=== PATIENT | male | born 1960 | race Caucasian/White ===

== ENCOUNTER 2020-03-17 16:19 | Emergency (ER) | payer MEDICAID ==
[2020-03-17] MEDS ORDERED: 50% Dextrose in Water 50 ML Syringe IVPUSH ONE (16:30)
--- NOTE | 2020-03-17 17:07 | EDM.PDOC ---
ED HPI GENERAL MEDICAL PROBLEM - General Chief Complaint: General Stated Complaint: HYPOGLYCEMIA Time Seen by Provider: 03/17/20 16:25 Source of Information: Reports: EMS History Limitations: Reports: No Limitations - History of Present Illness INITIAL COMMENTS - FREE TEXT/NARRATIVE: 59 years old male known pt of diabetes & cardiomyopathy passed out at work today at 3 o'clock noticed by a coworker .He was brought to ER by EMS .The patient took his lunch at 1 o'clock and took 6 units of insulin. He was lethargic & blood sugar was 35mg/dl at arrival to ER He was given cane nino juice & also injected IV push of 50ml of 50 percent dextrose -10 minutes blood sugar raised to 140mg/dl The patient denies fever, N/V ,headache chest pain ,cough ,shortness of breath ,abdominal pain ,dysuria Onset: Today, Sudden Onset Date: 03/17/20 Onset Time: 15:00 Duration: Hour(s): (3) Associated Symptoms: Reports: Confusion, Syncope - Related Data Allergies Allergy/AdvReac Type Severity Reaction Status Date / Time No Known Allergies Allergy Verified 03/17/20 16:22 Home Meds: Home Meds Insulin Glargine,Hum.Rec.Anlog [Lantus Solostar] 25 unit SQ DAILY 03/17/20 [History] Insulin Lispro [HumaLOG] 6 - 10 unit SQ TID 03/17/20 [History] RX: Amitriptyline [Elavil] 50 mg PO BEDTIME 03/17/20 [History] RX: carvediloL [Carvedilol] 3.125 mg PO BID 03/17/20 [History] SUMAtriptan [Imitrex] 25 mg PO Q4H PRN 03/17/20 [History] metFORMIN [Glucophage XR] 500 mg PO DAILY 03/17/20 [History] Past Medical History Cardiovascular History: Reports: Cardiomyopathy Endocrine/Metabolic History: Reports: Diabetes, Type II Social & Family History - Tobacco Use Tobacco Use Within Last Twelve Months: Cigarettes Years of Tobacco use: 20 Packs/Tins Daily: 1 ED ROS GENERAL - Review of Systems Review Of Systems: See Below Constitutional: Reports: Weakness, Other (passed out ) HEENT: Reports: No Symptoms Respiratory: Reports: No Symptoms Cardiovascular: Reports: No Symptoms Endocrine: Reports: Low Glucose GI/Abdominal: Reports: No Symptoms Musculoskeletal: Reports: No Symptoms Neurological: Reports: Syncope Psychiatric: Reports: No Symptoms Hematologic/Lymphatic: Reports: No Symptoms ED EXAM, GENERAL - Physical Exam Exam: See Below Exam Limited By: Altered Mental Status General Appearance: Alert, Mild Distress Head: Atraumatic, Normocephalic Neck: Normal Inspection Respiratory/Chest: No Respiratory Distress, Lungs Clear Cardiovascular: Normal Peripheral Pulses, No Edema, No Gallop, No JVD, No Murmur, No Rub GI/Abdominal: Normal Bowel Sounds, Soft, Non-Tender, No Organomegaly, No Distention, Rebound Back Exam: Normal Inspection Extremities: Normal Inspection, Normal Range of Motion, Non-Tender Neurological: Alert, Oriented Course - Vital Signs Text/Narrative:: Vitals monitored labs ordered Blood sugar was 35 mg/dl at 16.20 IV line passed & 50 ml push 50 ml of 50 percent dextrose blood sugar repeated & it was 140mg /dl at 16.40 pm & 146 mg /dl at 17.00 EKG done & shows left axis deviations pt is given complex carbohydrate diet orthostatic vitals checked lying WM=542/72 sitting =106 /71 standing =109/73 blood sugar is repeated - Last Recorded V/S: Last Vital Signs Temp 98.3 F 03/17/20 16:19 Pulse 67 03/17/20 16:19 Resp 16 03/17/20 16:19 BP 118/74 03/17/20 16:19 Pulse Ox 98 03/17/20 16:19 - Orders/Labs/Meds Orders: Active Orders 24 hr Category Date Time Status EKG Documentation Completion [RC] STAT Care 03/17/20 16:45 Active Chest 1V Frontal [CR] Stat Exams 03/17/20 16:44 Ordered COMPREHENSIVE METABOLIC PN,CMP [CHEM] Stat Lab 03/17/20 16:35 Received TROPONIN I [CHEM] Stat Lab 03/17/20 16:35 Received UA W/KOTA RFLX IF INDICATED [URIN] Stat Lab 03/17/20 16:38 Ordered Labs: Laboratory Tests 03/17/20 Range/Units 16:35 WBC 9.4 (4.0-11.0) K/uL RBC 5.10 (4.50-6.50) M/uL Hgb 15.3 (13.0-18.0) g/dL Hct 44.1 (40.0-54.0) % MCV 87 (76-96) fL MCH 30.0 (27.0-32.0) pg MCHC 34.7 (31.0-35.0) g/dL RDW 14.2 (11.0-16.0) % Plt Count 155 (150-400) K/uL MPV 11.0 H (6.0-10.0) fL Neut % (Auto) 71.5 H (45.0-70.0) % Lymph % (Auto) 22.1 (20.0-40.0) % Barnes % (Auto) 4.8 (3.0-10.0) % Eos % (Auto) 1.5 (1.0-5.0) % Baso % (Auto) 0.1 (0.0-0.5) % Neut # (Auto) 6.75 (2.00-7.50) K/uL Lymph # (Auto) 2.08 (1.50-4.00) K/uL Barnes # (Auto) 0.45 (0.20-0.80) K/uL Eos # (Auto) 0.14 (0.04-0.40) K/uL Baso # (Auto) 0.01 L (0.02-0.10) K/uL Meds: Medications Discontinued Medications Generic Name Dose Route Start Last Admin Trade Name Freq PRN Reason Stop Dose Admin Dextrose/Water 50 ml 03/17/20 16:30 Dextrose 50% In Water IVPUSH 03/17/20 16:31 ONETIME ONE Departure - Departure Time of Disposition: 18:25 Disposition: Home, Self-Care 01 Clinical Impression: Hypoglycemia associated with type 2 diabetes mellitus, Syncope and collapse - Discharge Information Sepsis Event Note (ED) - Focused Exam Vital Signs: Vital Signs Temp Pulse Resp BP Pulse Ox 03/17/20 16:19 98.3 F 67 16 118/74 98 - Problem List & Annotations (1) Hypoglycemia associated with type 2 diabetes mellitus SNOMED Code(s): 958998406, 266291259 Code(s): E11.649 - TYPE 2 DIABETES MELLITUS WITH HYPOGLYCEMIA WITHOUT COMA Status: Acute Priority: Medium Onset Date: ~03/17/20 Annotation/Comment:: f/u with primary care to adjust insulin (2) Syncope and collapse SNOMED Code(s): 349453114 Code(s): R55 - SYNCOPE AND COLLAPSE Status: Acute Priority: Medium Onset Date: ~03/17/20 Annotation/Comment:: always keep some candy with you . If you feeling dizzy ,just hold something & sat down - My Orders Last 24 Hours: My Active Orders 03/17/20 16:35 COMPREHENSIVE METABOLIC PN,CMP [CHEM] Stat TROPONIN I [CHEM] Stat 03/17/20 16:38 UA W/KOTA RFLX IF INDICATED [URIN] Stat 03/17/20 16:44 Chest 1V Frontal [CR] Stat 03/17/20 16:45 EKG Documentation Completion [RC] STAT - Assessment/Plan Last 24 Hours: My Active Orders 03/17/20 16:35 COMPREHENSIVE METABOLIC PN,CMP [CHEM] Stat TROPONIN I [CHEM] Stat 03/17/20 16:38 UA W/KOTA RFLX IF INDICATED [URIN] Stat 03/17/20 16:44 Chest 1V Frontal [CR] Stat 03/17/20 16:45 EKG Documentation Completion [RC] STAT
--- NOTE | 2020-03-18 10:21 | CR ---
Date of Service: 03/17/20 Clinical Data: Passed Out AP CHEST: No priors. The heart size is normal. There is calcification of the aortic arch. There is subtle ground-glass opacity in the right perihilar region. Viral pneumonia should be considered. The lungs are otherwise clear. No pneumothorax. No pleural effusions. There is degenerative disk disease at multiple levels in the thoracic spine. [id number] [facility]
== END 2020-03-17 18:40 | disposition home or self-care (01) ==
LOC: LB.ED 16:19
DX: E11.649 Type 2 diabetes mellitus with hypoglycemia without coma (principal); Z79.4 Long term (current) use of insulin; Z79.899 Other long term (current) drug therapy; Z72.0 Tobacco use
CPT/HCPCS: 36415; 71045; 80053; 81003; 82947; 82962; 84484; 85025; 93005; 96374; 99284; 99285-25

== ENCOUNTER 2020-04-22 19:30 | Emergency (ER) | payer MEDICAID ==
[2020-04-22] MEDS: Lidocaine 1% with EPINEPHrine 1:100,000 20 ML MDV INJECT ONE (19:42)
[2020-04-22] MEDS: Diphtheria,Pertussis(Acell),Tetanus Vaccine 0.5 ML SDV IM ONE (20:03)
--- NOTE | 2020-04-22 20:11 | EDM.PDOC ---
ED HPI GENERAL MEDICAL PROBLEM - General Chief Complaint: General Stated Complaint: LACERATION Time Seen by Provider: 04/22/20 19:40 Source of Information: Reports: Patient, RN History Limitations: Reports: No Limitations - History of Present Illness INITIAL COMMENTS - FREE TEXT/NARRATIVE: Mr. Wilkinson is a 59YO Diabetic male who went hypoglycemic and fainted he hit his head as he fell forward. No LOC. He is alert and Oriented x3. BG improved once he ate in the Ed. He has a linear laceration 1,5 cm above his left eye. No bleeding upon inspection. No JOLLY, Fever, N, V or D. Lungs are CTA. Normal HRR. He takes BP meds. He did not treat the injury prior to coming in. Onset: Today Onset Date: 04/22/20 Onset Time: 18:00 Duration: Hour(s): Location: Reports: Head, Face Improves with: Reports: None Worsens with: Reports: None Associated Symptoms: Reports: No Other Symptoms, Weakness - Related Data Allergies Allergy/AdvReac Type Severity Reaction Status Date / Time No Known Allergies Allergy Verified 04/22/20 20:14 Home Meds: Home Meds Amitriptyline [Elavil] 50 mg PO BEDTIME 03/17/20 [History] Insulin Glargine,Hum.Rec.Anlog [Lantus Solostar] 25 unit SQ DAILY 03/17/20 [History] Insulin Lispro [HumaLOG] 6 - 10 unit SQ TID 03/17/20 [History] SUMAtriptan [Imitrex] 25 mg PO Q4H PRN 03/17/20 [History] carvediloL [Carvedilol] 3.125 mg PO BID 03/17/20 [History] metFORMIN [Glucophage XR] 500 mg PO DAILY 03/17/20 [History] Past Medical History Cardiovascular History: Reports: Cardiomyopathy Other Cardiovascular History: Pt states "Ejection Fraction low" Neurological History: Reports: Migraines Endocrine/Metabolic History: Reports: Diabetes, Type II Social & Family History - Family History Family Medical History: No Pertinent Family History - Caffeine Use Caffeine Use: Reports: None ED ROS GENERAL - Review of Systems Review Of Systems: Comprehensive ROS is negative, except as noted in HPI. Skin: Reports: Other (aceration above left eye brow 1.5cm clean linear wound. ) ED EXAM, GENERAL - Physical Exam Exam: See Below Exam Limited By: No Limitations General Appearance: Alert, No Apparent Distress Eye Exam: Bilateral Eye: PERRL Nose: Normal Inspection, Normal Mucosa, No Blood Throat/Mouth: Normal Inspection, Normal Lips, Normal Teeth Head: Other (laceration 1.5cm above left eye.) Neck: Normal Inspection, Supple, Non-Tender, Full Range of Motion Respiratory/Chest: No Respiratory Distress, Lungs Clear, Normal Breath Sounds Cardiovascular: Normal Peripheral Pulses, Regular Rate, Rhythm, No Edema Peripheral Pulses: 2+: Radial (L), Radial (R) GI/Abdominal: Normal Bowel Sounds, Soft, Non-Tender (Male) Exam: No Hernia Back Exam: Normal Inspection, Full Range of Motion Extremities: Normal Inspection, Normal Range of Motion, Non-Tender Neurological: Alert, Oriented, CN II-XII Intact, Normal Cognition, Normal Gait, Normal Reflexes Psychiatric: Normal Affect, Normal Mood Skin Exam: Warm, Dry, Wound/Incision Lymphatic: No Adenopathy ED GENERAL MEDICAL PROCEDURES - Laceration/Wound Repair Left Face Lac/wound length in cm: 1.5 Appearance: Subcutaneous, Linear, Clean, Heavily Contaminated Anesthetic Type: Local Local Anesthesia - Lidocaine (Xylocaine): 1% with EPI Local Anesthetic Volume: 4cc Skin Prep: Chlorhexidine (Hibiciens), Providone-Iodine (Betadine), Other (saline) Exploration/Debridement/Repair: Wound Explored, In a Bloodless Field, No Foreign Material Found Closed with: Sutures Suture Size: 4-0 Suture Type: Nylon, Interrupted Course - Orders/Labs/Meds Labs: Laboratory Tests 04/22/20 Range/Units 18:23 POC Glucose 49 L* (74-110) mg/dL Departure - Departure Time of Disposition: 21:00 Disposition: Home, Self-Care 01 Condition: Good Clinical Impression: Hypoglycemia due to insulin, Laceration of face, Hypoglycemia associated with type 2 diabetes mellitus, Syncope and collapse - Discharge Information *PRESCRIPTION DRUG MONITORING PROGRAM REVIEWED*: Not Applicable Instructions: Hypoglycemia, Laceration Care, Adult, Facial Laceration, Preventing Hypoglycemia, Near-Syncope, [id number] Additional Instructions: Hold Lantus tonight. Increase fluids. Keep wound clean and dry. FU in 7 days to remove sutures. RT to ED or PCP for new and or worsening symptoms. - Assessment/Plan Assessment:: 1.5 cm Laceration above left eye. Hypoglycemia. Plan: Hold Lantus tonight. Increase fluids. Keep wound clean and dry. FU in 7 days to remove sutures. RT to ED or PCP for new and or worsening symptoms.
== END 2020-04-22 20:40 | disposition home or self-care (01) ==
LOC: LB.ED 19:30
DX: R55 Syncope and collapse (principal); S01.81XA Laceration without foreign body of other part of head, initial encounter; E11.649 Type 2 diabetes mellitus with hypoglycemia without coma; Z23 Encounter for immunization; Z79.4 Long term (current) use of insulin; Z79.899 Other long term (current) drug therapy; W18.30XA Fall on same level, unspecified, initial encounter; Y93.01 Activity, walking, marching and hiking; Y92.89 Other specified places as the place of occurrence of the external cause; Y99.0 Civilian activity done for income or pay
CPT/HCPCS: 12011; 82962; 90471; 90715; 99283; 99284-25

== ENCOUNTER 2020-10-31 23:04 | Emergency (ER) | payer MEDICAID ==
[2020-10-31] MEDS ORDERED: Ondansetron 4 MG Tab.DIS PO PRN (23:21)
[2020-10-31] MEDS ORDERED: Ondansetron 4 MG Tab.DIS ONE (23:33)
[2020-10-31] MEDS ORDERED: Sodium Chloride 0.9% 1,000 ML IV ONE (23:41)
[2020-10-31] MEDS ORDERED: 50% Dextrose in Water 50 ML Syringe IVPUSH ONE (23:42)
[2020-10-31] MEDS ORDERED: D5 1/2 NS w/ 10 mEq/L KCl 1,000 ML IV SCH (23:45)
[2020-11-01] MEDS ORDERED: HYDROmorphone 2 MG/ML SDV IVPUSH ONE (00:02)
[2020-11-01] MEDS ORDERED: HYDROmorphone 2 MG/ML SDV ONE (00:15)
[2020-11-01] MEDS ORDERED: 50% Dextrose in Water 50 ML Syringe ONE (00:31)
[2020-11-01] MEDS ORDERED: Insulin Glargine,Human Rec. Analog 100 Units/ML 3 ML Pen SUBCUT ONE (01:02)
[2020-11-01] MEDS ORDERED: Glucagon,Human Recombinant 1 MG Vial IM PRN (01:02)
[2020-11-01] MEDS ORDERED: Ondansetron 4 MG/2 ML SDV IVPUSH PRN (01:02)
[2020-11-01] MEDS ORDERED: 50% Dextrose in Water 50 ML Syringe IVPUSH PRN (01:02)
[2020-11-01] MEDS ORDERED: Sodium Chloride 0.9% 1,000 ML IV SCH (01:15)
[2020-11-01] MEDS: Ketorolac 30 MG/ML SDV IVPUSH SCH ×2 (01:24→07:04)
[2020-11-01] MEDS ORDERED: Ketorolac 30 MG/ML SDV ONE (01:31)
[2020-11-01] MEDS ORDERED: Insulin Aspart 100 Units/ML 3 ML Pen SUBCUT ONE ×2 (05:41→05:53)
--- NOTE | 2020-11-01 08:11 | CT ---
Date of Service: 08/30/20 Clinical Data: Head injury with LOC. UNENHANCED BRAIN CT: No priors. No masses or mass effect. No intracranial hemorrhage. No evidence of acute or subacute infarct. There is soft tissue swelling adjacent to the right frontal bone and there is preseptal soft tissue swelling on the right. No underlying fractures. No other significant findings. IMPRESSION: No acute intracranial abnormalities. [id number] [facility]
--- NOTE | 2020-11-01 08:44 | EDM.PDOC ---
ED HPI GENERAL MEDICAL PROBLEM - General Chief Complaint: Diabetic Complaint Stated Complaint: FALL AT HOME Time Seen by Provider: 10/31/20 23:15 - History of Present Illness INITIAL COMMENTS - FREE TEXT/NARRATIVE: Pt comes in with family after passing out at home. He is diabetic and took his Humalog before his evening meal. He just started eating pizza when he passed out and hit a coffee table with his head. He lives alone and was unconscious for several hours before waking up and calling his Mom who lived close by. She brought him in right away for evaluation. He C/O a headache and feeling tired. Initial eval reveals a huge hematoma around his right eye, closing his rt eye completely. He denies any chest pain, SOB or wheezing, or Abd pain. He is nauseated at times and did vomit once at home. Right Headache Pain Score (Numeric/FACES): 4 - Related Data Allergies Allergy/AdvReac Type Severity Reaction Status Date / Time No Known Allergies Allergy Verified 10/31/20 23:19 Home Meds: Home Meds Amitriptyline [Elavil] 50 mg PO BEDTIME 03/17/20 [History] Insulin Glargine,Hum.Rec.Anlog [Lantus Solostar] 25 unit SQ DAILY 03/17/20 [History] Insulin Lispro [HumaLOG] 6 - 10 unit SQ TID 03/17/20 [History] SUMAtriptan [Imitrex] 25 mg PO Q4H PRN 03/17/20 [History] carvediloL [Carvedilol] 3.125 mg PO BID 03/17/20 [History] Past Medical History Cardiovascular History: Reports: Cardiomyopathy Other Cardiovascular History: Pt states "Ejection Fraction low" Neurological History: Reports: Migraines Endocrine/Metabolic History: Reports: Diabetes, Type II Social & Family History - Family History Family Medical History: No Pertinent Family History - Caffeine Use Caffeine Use: Reports: Coffee ED ROS GENERAL - Review of Systems Review Of Systems: Comprehensive ROS is negative, except as noted in HPI. Constitutional: Reports: Fatigue HEENT: Reports: Other (swelling around his rt eye.) GI/Abdominal: Reports: Nausea ED EXAM GENERAL NO PERIP PULSE - Physical Exam Exam: See Below General Appearance: Other (Pt has a large hematoma around the Rt eye, closing the eye completely. Abrasions are also present on the lateral side and going up to the forehead.) Eye Exam: Left Eye: EOMI, PERRL Throat/Mouth: Other (mucous membranes are dry.) #1 Interpretation EKG Date: 10/31/20 Course - Vital Signs Last Recorded V/S: Last Vital Signs Temp 96 F L 10/31/20 23:44 Pulse 100 11/01/20 05:37 Resp 18 11/01/20 05:37 BP 137/81 11/01/20 05:37 Pulse Ox 96 11/01/20 05:37 - Orders/Labs/Meds Orders: Active Orders 24 hr Category Date Time Status Blood Glucose Check, Bedside [RC] Q2HR Care 11/01/20 01:05 Active Dextrose 50% in Water Med 11/01/20 01:02 Active 50 ml IVPUSH ASDIRECTED PRN Glucagon,Human Recombinant [GlucaGen] Med 11/01/20 01:02 Active 1 mg IM ASDIRECTED PRN Ketorolac [Toradol] Med 11/01/20 01:15 Active 15 mg IVPUSH Q6H Ondansetron [Zofran ODT] Med 10/31/20 23:21 Active 4 mg PO ONETIME PRN Ondansetron [Zofran] Med 11/01/20 01:02 Active 4 mg IVPUSH Q4H PRN Sodium Chloride 0.9% [Normal Saline] 1,000 ml Med 11/01/20 01:15 Active IV ASDIRECTED Medication Orders Dextrose/Water (50% Dextrose In Water 50 Ml Syringe) 50 ml IVPUSH ASDIRECTED PRN PRN Reason: Hypoglycemia Glucagon (Glucagon,Human Recombinant 1 Mg Vial) 1 mg IM ASDIRECTED PRN PRN Reason: Hypoglycemia Sodium Chloride (Normal Saline) 1,000 mls @ 125 mls/hr IV ASDIRECTED MARIA D Last Admin: 11/01/20 01:17 Dose: 125 mls/hr Documented by: JENNIFER Ketorolac Tromethamine (Ketorolac 30 Mg/Ml Sdv) 15 mg IVPUSH Q6H [facility] Last Admin: 11/01/20 07:04 Dose: 15 mg Documented by: Admin: 11/01/20 01:24 Dose: 15 mg Documented by: JENNIFER Ondansetron HCl (Ondansetron 4 Mg Tab.Dis) 4 mg PO ONETIME PRN PRN Reason: Vomiting Last Admin: 10/31/20 23:23 Dose: 4 mg Documented by: JENNIFER Ondansetron HCl (Ondansetron 4 Mg/2 Ml Sdv) 4 mg IVPUSH Q4H PRN PRN Reason: Nausea/Vomiting Labs: Laboratory Tests 10/31/20 10/31/20 10/31/20 Range/Units 00:15 00:15 23:12 WBC (4.0-11.0) K/uL RBC (4.50-6.50) M/uL Hgb (13.0-18.0) g/dL Hct (40.0-54.0) % MCV (76-96) fL MCH (27.0-32.0) pg MCHC (31.0-35.0) g/dL RDW (11.0-16.0) % Plt Count (150-400) K/uL MPV (6.0-10.0) fL Neut % (Auto) (45.0-70.0) % Lymph % (Auto) (20.0-40.0) % [place] % (Auto) (3.0-10.0) % Eos % (Auto) (1.0-5.0) % Baso % (Auto) (0.0-0.5) % Neut # (Auto) (2.00-7.50) K/uL Lymph # (Auto) (1.50-4.00) K/uL [place] # (Auto) (0.20-0.80) K/uL Eos # (Auto) (0.04-0.40) K/uL Baso # (Auto) (0.02-0.10) K/uL Sodium 137 (136-145) mmol/L Potassium 5.8 H D (3.5-5.1) mmol/L Chloride 106 (98-107) mmol/L Carbon Dioxide 28.0 (21.0-32.0) mmol/L Anion Gap 8.8 (5.0-15.0) mmol/L BUN 20 (8-26) mg/dL Creatinine 0.91 (0.70-1.30) mg/dL Est Cr Clr Drug Dosing TNP Estimated GFR (MDRD) > 60 (>60) MLS/MIN BUN/Creatinine Ratio 22.0 (6-25) Glucose 211 H (74-100) mg/dL POC Glucose 58 L (74-110) mg/dL Calcium 9.1 (8.5-10.1) mg/dL Total Bilirubin 1.0 D (0.0-1.0) mg/dL AST 25 (15-37) U/L ALT 35 (12-78) U/L Alkaline Phosphatase 90 (46-116) U/L Troponin I < 0.017 (0.000-0.060) ng/mL Total Protein 7.0 (6.4-8.2) g/dL Albumin 4.0 (3.4-5.0) g/dL Globulin 3.0 (2.2-4.2) g/dL Albumin/Globulin Ratio 1.3 (0.8-2.0) 11/01/20 11/01/20 11/01/20 Range/Units 00:15 01:30 03:10 WBC 10.9 (4.0-11.0) K/uL RBC 4.90 (4.50-6.50) M/uL Hgb 14.2 (13.0-18.0) g/dL Hct 41.0 (40.0-54.0) % MCV 84 (76-96) fL MCH 29.0 (27.0-32.0) pg MCHC 34.6 (31.0-35.0) g/dL RDW 14.1 (11.0-16.0) % Plt Count 161 (150-400) K/uL MPV 10.4 H (6.0-10.0) fL Neut % (Auto) 89.0 H (45.0-70.0) % Lymph % (Auto) 6.6 L (20.0-40.0) % [place] % (Auto) 4.2 (3.0-10.0) % Eos % (Auto) 0.1 L (1.0-5.0) % Baso % (Auto) 0.1 (0.0-0.5) % Neut # (Auto) 9.65 H (2.00-7.50) K/uL Lymph # (Auto) 0.72 L (1.50-4.00) K/uL [place] # (Auto) 0.46 (0.20-0.80) K/uL Eos # (Auto) 0.01 L (0.04-0.40) K/uL Baso # (Auto) 0.01 L (0.02-0.10) K/uL Sodium (136-145) mmol/L Potassium (3.5-5.1) mmol/L Chloride (98-107) mmol/L Carbon Dioxide (21.0-32.0) mmol/L Anion Gap (5.0-15.0) mmol/L BUN (8-26) mg/dL Creatinine (0.70-1.30) mg/dL Est Cr Clr Drug Dosing Estimated GFR (MDRD) (>60) MLS/MIN BUN/Creatinine Ratio (6-25) Glucose (74-100) mg/dL POC Glucose 162 H 188 H (74-110) mg/dL Calcium (8.5-10.1) mg/dL Total Bilirubin (0.0-1.0) mg/dL AST (15-37) U/L ALT (12-78) U/L Alkaline Phosphatase (46-116) U/L Troponin I (0.000-0.060) ng/mL Total Protein (6.4-8.2) g/dL Albumin (3.4-5.0) g/dL Globulin (2.2-4.2) g/dL Albumin/Globulin Ratio (0.8-2.0) 11/01/20 11/01/20 11/01/20 Range/Units 05:21 05:24 07:07 WBC (4.0-11.0) K/uL RBC (4.50-6.50) M/uL Hgb (13.0-18.0) g/dL Hct (40.0-54.0) % MCV (76-96) fL MCH (27.0-32.0) pg MCHC (31.0-35.0) g/dL RDW (11.0-16.0) % Plt Count (150-400) K/uL MPV (6.0-10.0) fL Neut % (Auto) (45.0-70.0) % Lymph % (Auto) (20.0-40.0) % [place] % (Auto) (3.0-10.0) % Eos % (Auto) (1.0-5.0) % Baso % (Auto) (0.0-0.5) % Neut # (Auto) (2.00-7.50) K/uL Lymph # (Auto) (1.50-4.00) K/uL [place] # (Auto) (0.20-0.80) K/uL Eos # (Auto) (0.04-0.40) K/uL Baso # (Auto) (0.02-0.10) K/uL Sodium (136-145) mmol/L Potassium (3.5-5.1) mmol/L Chloride (98-107) mmol/L Carbon Dioxide (21.0-32.0) mmol/L Anion Gap (5.0-15.0) mmol/L BUN (8-26) mg/dL Creatinine (0.70-1.30) mg/dL Est Cr Clr Drug Dosing Estimated GFR (MDRD) (>60) MLS/MIN BUN/Creatinine Ratio (6-25) Glucose (74-100) mg/dL POC Glucose 275 H 253 H 211 H (74-110) mg/dL Calcium (8.5-10.1) mg/dL Total Bilirubin (0.0-1.0) mg/dL AST (15-37) U/L ALT (12-78) U/L Alkaline Phosphatase (46-116) U/L Troponin I (0.000-0.060) ng/mL Total Protein (6.4-8.2) g/dL Albumin (3.4-5.0) g/dL Globulin (2.2-4.2) g/dL Albumin/Globulin Ratio (0.8-2.0) 11/01/20 11/01/20 Range/Units 08:00 08:14 WBC (4.0-11.0) K/uL RBC (4.50-6.50) M/uL Hgb (13.0-18.0) g/dL Hct (40.0-54.0) % MCV (76-96) fL MCH (27.0-32.0) pg MCHC (31.0-35.0) g/dL RDW (11.0-16.0) % Plt Count (150-400) K/uL MPV (6.0-10.0) fL Neut % (Auto) (45.0-70.0) % Lymph % (Auto) (20.0-40.0) % [place] % (Auto) (3.0-10.0) % Eos % (Auto) (1.0-5.0) % Baso % (Auto) (0.0-0.5) % Neut # (Auto) (2.00-7.50) K/uL Lymph # (Auto) (1.50-4.00) K/uL [place] # (Auto) (0.20-0.80) K/uL Eos # (Auto) (0.04-0.40) K/uL Baso # (Auto) (0.02-0.10) K/uL Sodium 138 (136-145) mmol/L Potassium 4.1 D (3.5-5.1) mmol/L Chloride 107 (98-107) mmol/L Carbon Dioxide 26.1 (21.0-32.0) mmol/L Anion Gap 9.0 (5.0-15.0) mmol/L BUN 22 (8-26) mg/dL Creatinine 0.95 (0.70-1.30) mg/dL Est Cr Clr Drug Dosing TNP Estimated GFR (MDRD) > 60 (>60) MLS/MIN BUN/Creatinine Ratio 23.2 (6-25) Glucose 197 H (74-100) mg/dL POC Glucose 183 H (74-110) mg/dL Calcium 8.5 (8.5-10.1) mg/dL Total Bilirubin (0.0-1.0) mg/dL AST (15-37) U/L ALT (12-78) U/L Alkaline Phosphatase (46-116) U/L Troponin I (0.000-0.060) ng/mL Total Protein (6.4-8.2) g/dL Albumin (3.4-5.0) g/dL Globulin (2.2-4.2) g/dL Albumin/Globulin Ratio (0.8-2.0) Meds: Medications Generic Name Dose Route Start Last Admin Trade Name Freq PRN Reason Stop Dose Admin Dextrose/Water 50 ml 11/01/20 01:02 50% Dextrose In Water 50 Ml Syringe IVPUSH ASDIRECTED PRN Hypoglycemia Glucagon 1 mg 11/01/20 01:02 Glucagon,Human Recombinant 1 Mg Vial IM ASDIRECTED PRN Hypoglycemia Sodium Chloride 1,000 mls @ 125 mls/hr 11/01/20 01:15 11/01/20 01:17 Normal Saline IV 125 mls/hr ASDIRECTED MARIA D Administration Ketorolac Tromethamine 15 mg 11/01/20 01:15 11/01/20 07:04 Ketorolac 30 Mg/Ml Sdv IVPUSH 15 mg Q6H MARIA D Administration Ondansetron HCl 4 mg 10/31/20 23:21 10/31/20 23:23 Ondansetron 4 Mg Tab.Dis PO 4 mg ONETIME PRN Administration Vomiting Ondansetron HCl 4 mg 11/01/20 01:02 Ondansetron 4 Mg/2 Ml Sdv IVPUSH Q4H PRN Nausea/Vomiting Discontinued Medications Generic Name Dose Route Start Last Admin Trade Name Freq PRN Reason Stop Dose Admin Dextrose/Water 25 ml 10/31/20 23:42 10/31/20 23:50 50% Dextrose In Water 50 Ml Syringe IVPUSH 10/31/20 23:43 25 ml ONETIME ONE Administration Dextrose/Water Confirm 11/01/20 00:31 11/01/20 00:41 50% Dextrose In Water 50 Ml Syringe Administered 11/01/20 00:32 Not Given Dose 50 ml .ROUTE .STK-MED ONE Hydromorphone HCl 1 mg 11/01/20 00:02 11/01/20 00:06 Hydromorphone 2 Mg/Ml Sdv IVPUSH 11/01/20 00:03 1 mg ONETIME ONE Administration Hydromorphone HCl Confirm 11/01/20 00:15 11/01/20 00:22 Hydromorphone 2 Mg/Ml Sdv Administered 11/01/20 00:16 Not Given Dose 2 mg .ROUTE .STK-MED ONE Potassium Chloride/Dextrose/Sod Cl 1,000 mls @ 500 mls/hr 10/31/20 23:45 D5 1/2 Ns W/ 10 Meq/L Kcl IV ASDIRECTED MARIA D Sodium Chloride 1,000 mls @ 999 mls/hr 10/31/20 23:41 10/31/20 23:54 Normal Saline IV 11/01/20 00:41 999 mls/hr .BOLUS ONE Administration Insulin Aspart 4 unit 11/01/20 05:41 11/01/20 05:46 Insulin Aspart 100 Units/Ml 3 Ml Pen SUBCUT 11/01/20 05:42 4 units ONETIME ONE Administration Insulin Aspart 2 unit 11/01/20 05:53 11/01/20 05:54 Insulin Aspart 100 Units/Ml 3 Ml Pen SUBCUT 11/01/20 05:54 2 units ONETIME ONE Administration Insulin Glargine 20 units 11/01/20 01:02 11/01/20 01:26 Insulin Glargine,Human Rec. Analog 100 Units/Ml 3 Ml Pen SUBCUT 11/01/20 01:03 20 units ONETIME ONE Administration Ketorolac Tromethamine Confirm 11/01/20 01:31 11/01/20 01:35 Ketorolac 30 Mg/Ml Sdv Administered 11/01/20 01:32 Not Given Dose 30 mg .ROUTE .STK-MED ONE Ondansetron HCl Confirm 10/31/20 23:33 10/31/20 23:39 Ondansetron 4 Mg Tab.Dis Administered 10/31/20 23:34 Not Given Dose 4 mg .ROUTE .STK-MED ONE - Radiology Interpretation Free Text/Narrative:: Head CT reveals a large hematoma of the Rt periorbital, supraorbital, and frontal scalp area. No other acute findings noted. - Re-Assessments/Exams Free Text/Narrative Re-Assessment/Exam: 11/01/20 08:49 B.S was 58 initially. 1/2 amp of D50 was given. Normal saline was started with a bolus of 1 liter. Zofran was given for nausea. Dilaudid given for headache pain rated at 8-9/10. His B.S. improved to 188. Labs also revealed a K+ level of 5.8 - I believe this is due to dehydration. Pt is feeling better, but very tired. We decided to monitor him overnite as an ER hold. Toradol and Zofran were given IV. Checking B.S. q 2 hours. Lantus 20 mg was given. Pt did well and by morning his B.S. was 197. He was able to stand and walk without feeling unstable. He will be discharged home with a special client bus driver. His Rt eye is still swollen shut, but the swelling is much less than last nite. He is instructed to monitor his Rt eye vision closely when the swelling resolves. If his vision is blurry or changed in any way he is to see Optometry for further eval. Pt is feeling much better today and is ready to go home. 11/01/20 08:52 Departure - Departure Time of Disposition: 09:00 Disposition: Home, Self-Care 01 Condition: Good Clinical Impression: Hypoglycemia, Closed head injury with loss of consciousness of unknown duration - Discharge Information *PRESCRIPTION DRUG MONITORING PROGRAM REVIEWED*: Yes *COPY OF PRESCRIPTION DRUG MONITORING REPORT IN PATIENT IWONA: Yes Referrals: PCP,None [Primary Care Provider] - Sepsis Event Note (ED) - Evaluation Sepsis Screening Result: No Definite Risk - Focused Exam Vital Signs: Vital Signs Temp Pulse Resp BP Pulse Ox 11/01/20 05:37 100 18 137/81 96 11/01/20 01:02 79 18 130/84 98 11/01/20 00:35 83 18 119/72 97 11/01/20 00:27 78 18 120/75 96 11/01/20 00:11 82 18 99 10/31/20 23:44 96 F L 94 18 125/89 97 10/31/20 23:20 96 F L 96 18 125/89 97 - My Orders Last 24 Hours: My Active Orders 10/31/20 23:21 Ondansetron [Zofran ODT] 4 mg PO ONETIME PRN 11/01/20 01:02 Dextrose 50% in Water 50 ml IVPUSH ASDIRECTED PRN Glucagon,Human Recombinant [GlucaGen] 1 mg IM ASDIRECTED PRN Ondansetron [Zofran] 4 mg IVPUSH Q4H PRN 11/01/20 01:05 Blood Glucose Check, Bedside [RC] Q2HR 11/01/20 01:15 Ketorolac [Toradol] 15 mg IVPUSH Q6H Sodium Chloride 0.9% [Normal Saline] 1,000 ml IV ASDIRECTED - Assessment/Plan Last 24 Hours: My Active Orders 10/31/20 23:21 Ondansetron [Zofran ODT] 4 mg PO ONETIME PRN 11/01/20 01:02 Dextrose 50% in Water 50 ml IVPUSH ASDIRECTED PRN Glucagon,Human Recombinant [GlucaGen] 1 mg IM ASDIRECTED PRN Ondansetron [Zofran] 4 mg IVPUSH Q4H PRN 11/01/20 01:05 Blood Glucose Check, Bedside [RC] Q2HR 11/01/20 01:15 Ketorolac [Toradol] 15 mg IVPUSH Q6H Sodium Chloride 0.9% [Normal Saline] 1,000 ml IV ASDIRECTED
== END 2020-11-01 09:02 | disposition home or self-care (01) ==
LOC: LB.ED 23:04
DX: S06.9X9A Unspecified intracranial injury with loss of consciousness of unspecified duration, initial encounter (principal); E11.649 Type 2 diabetes mellitus with hypoglycemia without coma; Z79.4 Long term (current) use of insulin; W22.09XA Striking against other stationary object, initial encounter; Y92.009 Unspecified place in unspecified non-institutional (private) residence as the place of occurrence of the external cause
CPT/HCPCS: 36415; 70450; 80048; 80053; 82947; 84484; 85025; 93005; 96374; 96375; 99285; A9270; J1170; J1885; J7030

== ENCOUNTER 2020-11-09 23:46 | Emergency (ER) | payer MEDICAID ==
[2020-11-09] MEDS ORDERED: prednisoLONE Acetate 1% Ophth Susp 5 ML Bottle ONE (23:50)
[2020-11-10] MEDS: Tetracaine HCl/PF 0.5% 4 ML Bottle EYERT SCH (00:15)
--- NOTE | 2020-11-10 00:27 | EDM.PDOC ---
ED HPI GENERAL MEDICAL PROBLEM - General Chief Complaint: Eye Problems Stated Complaint: EYE PAIN Time Seen by Provider: 11/10/20 00:05 - History of Present Illness INITIAL COMMENTS - FREE TEXT/NARRATIVE: Pt comes to the ER with his Mom with C/O right eye pain, redness, and drainage. He fell about 1 week ago hitting his head and came in with a large hematoma around his Rt eye. CT scan did not show a fracture, just a massive hematoma. He tells me his eye has become more painful when open the last couple days. With his eye closed the pain is better. He was directed to follow up with an Talent Acquisition Relationship Manager, but tells me they were not available until next week. He does have an appt Thursday here in [place]. His vision is somewhat blurred. eye Pain Score (Numeric/FACES): 12 - Related Data Allergies Allergy/AdvReac Type Severity Reaction Status Date / Time No Known Allergies Allergy Verified 11/10/20 00:08 Home Meds: Home Meds Amitriptyline [Elavil] 50 mg PO BEDTIME 03/17/20 [History] Insulin Glargine,Hum.Rec.Anlog [Lantus Solostar] 25 unit SQ DAILY 03/17/20 [History] Insulin Lispro [HumaLOG] 6 - 10 unit SQ TID 03/17/20 [History] SUMAtriptan [Imitrex] 25 mg PO Q4H PRN 03/17/20 [History] carvediloL [Carvedilol] 3.125 mg PO BID 03/17/20 [History] Past Medical History Cardiovascular History: Reports: Cardiomyopathy Other Cardiovascular History: Pt states "Ejection Fraction low" Neurological History: Reports: Migraines Endocrine/Metabolic History: Reports: Diabetes, Type II Social & Family History - Family History Family Medical History: No Pertinent Family History - Caffeine Use Caffeine Use: Reports: Coffee ED ROS GENERAL - Review of Systems Review Of Systems: Comprehensive ROS is negative, except as noted in HPI. HEENT: Reports: Other (Rt eye pain, redness, and drainage.) ED EXAM GENERAL W FULL EYE - Physical Exam Exam: See Below Eye Exam: Right Eye: Conjunctival Injection, Other (The sclera is extensively reddened and injected. There is matter along the lid margins and both medial and lateral canthus.) Course - Vital Signs Last Recorded V/S: Last Vital Signs Temp 97.4 F 11/10/20 00:13 Pulse 87 11/10/20 00:13 Resp 16 11/10/20 00:13 BP 101/81 11/10/20 00:13 Pulse Ox 98 11/10/20 00:13 - Re-Assessments/Exams Free Text/Narrative Re-Assessment/Exam: 11/10/20 00:29 [place] drops were put in, and this helped with his pain. I will start him on Prednisolone drops and Gentak ointment. He is to use warm paks as needed. I advised him he should have seen an Talent Acquisition Relationship Manager sooner, but to keep his appt on Thursday. Follow up here sooner if his symptoms get worse over the weekend. Departure - Departure Time of Disposition: 00:20 Disposition: Home, Self-Care 01 Condition: Good Clinical Impression: Conjunctivitis Qualifiers: Conjunctivitis type: acute Acute conjunctivitis type: bacterial Laterality: right Qualified Code(s): H10.31 - Unspecified acute conjunctivitis, right eye - Discharge Information *PRESCRIPTION DRUG MONITORING PROGRAM REVIEWED*: No *COPY OF PRESCRIPTION DRUG MONITORING REPORT IN PATIENT IWONA: Yes Instructions: Bacterial Conjunctivitis, Adult Forms: ED Department Discharge Additional Instructions: Apply Gentak ointment to eye 4x/day for 1 week, apply a thin layer to inner eye and let absorb. Apply Prednisolone drops 4x/day for 3 days. Follow up with Opthamologist. Keep eye shut when possible and maintain clean area and clean hands while caring for the injury. Sepsis Event Note (ED) - Focused Exam Vital Signs: Vital Signs Temp Pulse Resp BP Pulse Ox 11/10/20 00:13 97.4 F 87 16 101/81 98
== END 2020-11-10 00:30 | disposition home or self-care (01) ==
LOC: LB.ED 23:46
DX: H10.021 Other mucopurulent conjunctivitis, right eye (principal); E11.9 Type 2 diabetes mellitus without complications; Z79.4 Long term (current) use of insulin
CPT/HCPCS: 99282; A9270-GY

== ENCOUNTER 2024-08-26 13:15 | Emergency (ER) | payer MEDICAID ==
[2024-08-26] MEDS ORDERED: Sodium Chloride 0.9% 10 ML Syringe FLUSH PRN (13:35)
[2024-08-26 13:51] LABS: BASOPHILS ABSOLUTE AUTO 0.01 K/uL (0.02-0.10); BASOPHILS PERCENT AUTO 0.1 % (0.0-0.5); EOSINOPHILS ABSOLUTE AUTO 0.01 K/uL (0.04-0.40); EOSINOPHILS PERCENT AUTO 0.1 % (1.0-5.0); LYMPHOCYTES ABSOLUTE AUTO 1.51 K/uL (1.50-4.00); LYMPHOCYTES PERCENT AUTO 21.1 % (20.0-40.0); MEAN PLATELET VOLUME 10.3 fL (6.0-10.0); MONOCYTES ABSOLUTE AUTO 0.61 K/uL (0.20-0.80); MONOCYTES PERCENT AUTO 8.5 % (3.0-10.0); NEUTROPHILS ABSOLUTE AUTO 5.00 K/uL (2.00-7.50); NEUTROPHILS PERCENT AUTO 70.2 % (45.0-70.0); PLATELET COUNT,PLT 281 K/uL (150-400); RED BLOOD CELL COUNT 4.51 M/uL (4.50-6.50); RED CELL DISTRIBUTION WIDTH 14.1 % (11.0-16.0); WHITE BLOOD CELL COUNT,WBC 7.1 K/uL (4.0-11.0)
[2024-08-26] MEDS: Ketorolac 15 MG/ML SDV IVPUSH ONE (14:00)
[2024-08-26 14:20] LABS: A/G RATIO 0.9 (0.8-2.0); ALANINE AMINOTRANSFERASE,ALT 35.0 U/L (12-78); ASPARTATE AMNIOTRANSFERASE,AST 35.0 U/L (15-37); BILIRUBIN TOTAL 0.7 mg/dL (0.0-1.0); BLOOD UREA NITROGEN,BUN 13.0 mg/dL (8-26); CARBON DIOXIDE,CO2 29.9 mmol/L (21.0-32.0); CHLORIDE,CL 102.0 mmol/L (98-107); CREATININE 0.87 mg/dL (0.70-1.30); EST CRCL DRUG DOSING (CG) 98.22 mL/min; ESTIMATED GFR 97.0 mL/min (>60); GLUCOSE RANDOM 146.0 mg/dL (74-100); POTASSIUM,K 3.8 mmol/L (3.5-5.1); PROTEIN TOTAL,TP 6.4 g/dL (6.4-8.2); SODIUM,NA 139.0 mmol/L (136-145)
[2024-08-26 15:06] LABS: INFLUENZA A NAA NEGATIVE (NEGATIVE); INFLUENZA B NAA NEGATIVE (NEGATIVE); RESPIRATORY SYNCYTIAL VIR NAA NEGATIVE (NEGATIVE)
[2024-08-26] MEDS: Albuterol 0.083% 2.5 MG/3 ML Neb Soln NEB ONE (15:25)
[2024-08-26 15:39] LABS: CORONAVIRUS COVID-19 NAA NEGATIVE (NEGATIVE)
[2024-08-26 16:54] LABS: APPEARANCE,URINE CLEAR (CLEAR); GLUCOSE,URINE NEGATIVE (NEGATIVE); OCCULT BLOOD,URINE NEGATIVE (NEGATIVE)
[2024-08-26 17:02] LABS: AMPHETAMINES SCREEN, URINE NEGATIVE (NEGATIVE); METHADONE SCREEN, URINE NEGATIVE (NEGATIVE); METHAMPHETAMINES SCREEN, URINE NEGATIVE (NEGATIVE); OXYCODONE SCREEN,URINE NEGATIVE (NEGATIVE); THC SCREEN,URINE 50 NG/ML POSITIVE (NEGATIVE)
== END 2024-08-26 20:25 | disposition home or self-care (01) ==
LOC: LB.ED 13:15
DX: E86.0 Dehydration (principal); R50.9 Fever, unspecified; E11.9 Type 2 diabetes mellitus without complications; Z79.4 Long term (current) use of insulin; Z79.899 Other long term (current) drug therapy
CPT/HCPCS: 36415; 71046; 71250; 80053; 80307; 81003; 83605; 83880; 84484; 85025; 86140; 87040; 87468; 87469; 87484; 87637; 87798; 93005; 94640; 96361; 96374; 99285; J1885; J7030; J7613; A0425; A0429; A9270-GY

== ENCOUNTER 2024-08-29 19:59 | Emergency (ER) | payer MEDICAID ==
[2024-08-29] MEDS ORDERED: Sodium Chloride 0.9% 10 ML Syringe FLUSH PRN (20:04)
[2024-08-29 20:17] LABS: MEAN PLATELET VOLUME 10.7 fL (6.0-10.0); PLATELET COUNT,PLT 271.0 K/uL (150-400); RED BLOOD CELL COUNT 4.74 M/uL (4.50-6.50); RED CELL DISTRIBUTION WIDTH 14.4 % (11.0-16.0); WHITE BLOOD CELL COUNT,WBC 7.2 K/uL (4.0-11.0)
[2024-08-29 20:43] LABS: BLOOD UREA NITROGEN,BUN 15.0 mg/dL (8-26); CARBON DIOXIDE,CO2 29.0 mmol/L (21.0-32.0); CHLORIDE,CL 107.0 mmol/L (98-107); CREATININE 0.81 mg/dL (0.70-1.30); EST CRCL DRUG DOSING (CG) 105.49 mL/min; ESTIMATED GFR 99.0 mL/min (>60); GLUCOSE RANDOM 177.0 mg/dL (74-100); POTASSIUM,K 4.0 mmol/L (3.5-5.1); SODIUM,NA 146.0 mmol/L (136-145); TROPONIN I HIGH SENSITIVITY 8.5 pg/ml (<=60.4)
[2024-08-30 07:16] LABS: APPEARANCE,URINE TURBID (CLEAR); GLUCOSE,URINE 100 mg/dL (NEGATIVE); OCCULT BLOOD,URINE NEGATIVE (NEGATIVE)
== END 2024-08-30 11:20 | disposition home or self-care (01) ==
LOC: LB.ED 19:59
DX: E11.649 Type 2 diabetes mellitus with hypoglycemia without coma (principal); Z79.4 Long term (current) use of insulin; Z79.899 Other long term (current) drug therapy
CPT/HCPCS: 36415; 70450; 80048; 81001; 82947; 83036; 83735; 84484; 85027; 93005; 93242; 96360; 99285; A0425; A0428; J7030; 93010; 99284

== ENCOUNTER 2024-08-31 14:55 | Emergency (ER) | payer MEDICAID ==
[2024-08-31 15:31] LABS: MEAN PLATELET VOLUME 11.1 fL (6.0-10.0); PLATELET COUNT,PLT 288.0 K/uL (150-400); RED BLOOD CELL COUNT 5.33 M/uL (4.50-6.50); RED CELL DISTRIBUTION WIDTH 14.6 % (11.0-16.0); WHITE BLOOD CELL COUNT,WBC 11.9 K/uL (4.0-11.0)
[2024-08-31 15:50] LABS: BLOOD UREA NITROGEN,BUN 14.0 mg/dL (8-26); CARBON DIOXIDE,CO2 31.8 mmol/L (21.0-32.0); CHLORIDE,CL 104.0 mmol/L (98-107); CREATININE 0.82 mg/dL (0.70-1.30); EST CRCL DRUG DOSING (CG) 104.21 mL/min; ESTIMATED GFR 99.0 mL/min (>60); GLUCOSE RANDOM 54.0 mg/dL (74-100); POTASSIUM,K 3.6 mmol/L (3.5-5.1); SODIUM,NA 144.0 mmol/L (136-145); TROPONIN I HIGH SENSITIVITY 26.7 pg/ml (<=60.4)
[2024-08-31 17:01] LABS: APPEARANCE,URINE CLEAR (CLEAR); GLUCOSE,URINE 250 mg/dL (NEGATIVE); OCCULT BLOOD,URINE TRACE-INTACT (NEGATIVE)
[2024-08-31] MEDS: Sodium Chloride 0.9% 50 ML SDV FLUSH SCH (17:20)
[2024-08-31] MEDS: Iopamidol 755 Mg/ML 100 ML Bottle IV PRN (17:20)
[2024-08-31 17:23] LABS: EPITHELIAL CELLS,URINE OCCASIONAL /HPF
[2024-08-31] MEDS: Potassium Phosphates 30 MMOLE in Sodium Chloride 0.9% 500 ML IV STA (18:09)
[2024-08-31] MEDS: diazePAM 5 MG/ML MDV IVPUSH ONE (18:29)
[2024-08-31] MEDS: diazePAM 5 MG/ML MDV IV ONE (20:54)
[2024-08-31] MEDS: diazePAM 5 MG/ML MDV ONE (20:57)
[2024-09-01] MEDS: diazePAM 5 MG/ML MDV IVPUSH ONE (01:15)
[2024-09-01] MEDS: Labetalol 100 MG/20 ML MDV IVPUSH ONE (02:11)
[2024-09-05 07:00] LABS: BORRELIA SPECIES SOURCE Plasma; BORRELIA SPP DNA DETECTION PCR Not Detected
== END 2024-09-01 03:10 ==
LOC: LB.ED 14:55
DX: E11.649 Type 2 diabetes mellitus with hypoglycemia without coma (principal); R29.898 Other symptoms and signs involving the musculoskeletal system; Z86.16 Personal history of COVID-19; Z79.899 Other long term (current) drug therapy; Z79.4 Long term (current) use of insulin
CPT/HCPCS: 36415; 70450; 70496; 70498; 72131; 80048; 81001; 82550; 82947; 83735; 84100; 84484; 85027; 86140; 87040; 87476; 96361; 96365; 96366; 96368; 96375; 96376; 99285; A0425; A0428; A0429; A9270; J1920; J1953; J3360; J7040; Q9967; J3490

== ENCOUNTER 2024-09-26 04:28 | Inpatient (IN) | payer MEDICAID ==
[2024-09-26 05:07] LABS: BASOPHILS ABSOLUTE AUTO 0.02 K/uL (0.02-0.10); BASOPHILS PERCENT AUTO 0.2 % (0.0-0.5); EOSINOPHILS ABSOLUTE AUTO 0.01 K/uL (0.04-0.40); EOSINOPHILS PERCENT AUTO 0.1 % (1.0-5.0); LYMPHOCYTES ABSOLUTE AUTO 1.07 K/uL (1.50-4.00); LYMPHOCYTES PERCENT AUTO 10.0 % (20.0-40.0); MEAN PLATELET VOLUME 10.9 fL (6.0-10.0); MONOCYTES ABSOLUTE AUTO 0.86 K/uL (0.20-0.80); MONOCYTES PERCENT AUTO 8.0 % (3.0-10.0); NEUTROPHILS ABSOLUTE AUTO 8.76 K/uL (2.00-7.50); NEUTROPHILS PERCENT AUTO 81.7 % (45.0-70.0); PLATELET COUNT,PLT 195 K/uL (150-400); RED BLOOD CELL COUNT 4.12 M/uL (4.50-6.50); RED CELL DISTRIBUTION WIDTH 15.2 % (11.0-16.0); WHITE BLOOD CELL COUNT,WBC 10.7 K/uL (4.0-11.0)
[2024-09-26 05:20] LABS: PHOSPHORUS 2.1 mg/dL (2.5-4.9)
[2024-09-26 05:23] LABS: A/G RATIO 0.5 (0.8-2.0); ALANINE AMINOTRANSFERASE,ALT 35.0 U/L (12-78); ASPARTATE AMNIOTRANSFERASE,AST 29.0 U/L (15-37); BILIRUBIN TOTAL 1.0 mg/dL (0.0-1.0); BLOOD UREA NITROGEN,BUN 11.0 mg/dL (8-26); CARBON DIOXIDE,CO2 24.7 mmol/L (21.0-32.0); CHLORIDE,CL 103.0 mmol/L (98-107); CREATININE 0.88 mg/dL (0.70-1.30); EST CRCL DRUG DOSING (CG) 97.1 mL/min; ESTIMATED GFR 97.0 mL/min (>60); GLUCOSE RANDOM 183.0 mg/dL (74-100); POTASSIUM,K 3.6 mmol/L (3.5-5.1); PROTEIN TOTAL,TP 7.2 g/dL (6.4-8.2); SODIUM,NA 136.0 mmol/L (136-145)
[2024-09-26 07:17] LABS: APPEARANCE,URINE TURBID (CLEAR); GLUCOSE,URINE 100 mg/dL (NEGATIVE); OCCULT BLOOD,URINE SMALL (NEGATIVE)
[2024-09-26 07:46] LABS: WBC CLUMPS,URINE FEW /HPF
[2024-09-26] MEDS ORDERED: Potassium Phosphates 15 MMOLE in Sodium Chloride 0.9% 250 ML IV SCH (09:30)
[2024-09-26] MEDS: Magnesium Sulfat/D5W 1GM/100ML 1 GM in Premix Bag 1 BAG IV ONE (09:30)
[2024-09-26] MEDS: diazePAM 5 MG/ML MDV IV ONE (10:07)
[2024-09-26] MEDS: Potassium Phosphates 15 MMOLE in Sodium Chloride 0.9% 250 ML IV ONE (10:07)
[2024-09-26] MEDS: Ketorolac 15 MG/ML SDV IVPUSH ONE ×2 (10:29→10:31)
[2024-09-26] MEDS ORDERED: 50% Dextrose in Water 50 ML Syringe IVPUSH PRN (11:13)
[2024-09-26] MEDS: Insulin Lispro 100 Unit/ML 3 ML KwikPen SUBCUT SCH ×3 (14:29→21:00)
[2024-09-26] MEDS: Ketorolac 15 MG/ML SDV IVPUSH PRN (16:12)
[2024-09-26] MEDS: diazePAM 5 MG/ML MDV IVPUSH ONE (16:49)
[2024-09-26] MEDS ORDERED: AMITRIPTYLINE 50 MG PO SCH (20:00)
[2024-09-26] MEDS: LACOSAMIDE 100 MG PO SCH (21:04)
[2024-09-27] MEDS: Lactobacillus Acidophilus/Lactobacillus Sporogenes (Probiotic) Tab PO SCH (07:41)
[2024-09-27] MEDS: Insulin Glargine,Human Rec. Analog 100 Units/ML 3 ML Pen SUBCUT SCH ×2 (07:46→20:03)
[2024-09-27] MEDS ORDERED: Insulin Lispro 100 Unit/ML 3 ML KwikPen SUBCUT SCH (08:00)
[2024-09-27] MEDS ORDERED: INSULIN DEGLUDEC 100 UNIT/ML SQ SCH (08:00)
[2024-09-27 08:58] LABS: MEAN PLATELET VOLUME 11.1 fL (6.0-10.0); PLATELET COUNT,PLT 147.0 K/uL (150-400); RED BLOOD CELL COUNT 3.96 M/uL (4.50-6.50); RED CELL DISTRIBUTION WIDTH 15.4 % (11.0-16.0); WHITE BLOOD CELL COUNT,WBC 13.9 K/uL (4.0-11.0)
[2024-09-27 09:37] LABS: BLOOD UREA NITROGEN,BUN 12.0 mg/dL (8-26); CARBON DIOXIDE,CO2 23.3 mmol/L (21.0-32.0); CHLORIDE,CL 103.0 mmol/L (98-107); CREATININE 1.09 mg/dL (0.70-1.30); EST CRCL DRUG DOSING (CG) 78.39 mL/min; ESTIMATED GFR 76.0 mL/min (>60); GLUCOSE RANDOM 295.0 mg/dL (74-100); PHOSPHORUS 2.1 mg/dL (2.5-4.9); POTASSIUM,K 4.0 mmol/L (3.5-5.1); SODIUM,NA 136.0 mmol/L (136-145)
[2024-09-27] MEDS: Potassium Phosphates 30 MMOLE in Sodium Chloride 0.9% 500 ML IV ONE (11:05)
[2024-09-27] MEDS: GI Cocktail Oral Solution 30 ML PO ONE (13:50)
[2024-09-27] MEDS: NYSTATIN PO SCH (15:59)
[2024-09-27] MEDS: LIDOCAINE PO SCH (15:59)
[2024-09-27] MEDS: DIPHENHYDRAMINE PO SCH (15:59)
[2024-09-27] MEDS ORDERED: Diphenhydramine/Lidocaine/Nystatin Suspension 237 ML Bottle PO SCH (16:00)
[2024-09-27] MEDS: methylPREDNISolone Sodium Succinate 40 MG/1 ML SDV IVPUSH SCH (18:34)
[2024-09-27] MEDS ORDERED: Insulin Glargine,Human Rec. Analog 100 Units/ML 3 ML Pen SUBCUT SCH (20:00)
[2024-09-28 09:17] LABS: MEAN PLATELET VOLUME 11.9 fL (6.0-10.0); PLATELET COUNT,PLT 157.0 K/uL (150-400); RED BLOOD CELL COUNT 4.1 M/uL (4.50-6.50); RED CELL DISTRIBUTION WIDTH 15.5 % (11.0-16.0); WHITE BLOOD CELL COUNT,WBC 10.3 K/uL (4.0-11.0)
[2024-09-28 09:30] LABS: BLOOD UREA NITROGEN,BUN 17.0 mg/dL (8-26); CARBON DIOXIDE,CO2 20.9 mmol/L (21.0-32.0); CHLORIDE,CL 105.0 mmol/L (98-107); CREATININE 0.71 mg/dL (0.70-1.30); EST CRCL DRUG DOSING (CG) 120.35 mL/min; ESTIMATED GFR 103.0 mL/min (>60); GLUCOSE RANDOM 263.0 mg/dL (74-100); PHOSPHORUS 2.3 mg/dL (2.5-4.9); POTASSIUM,K 3.9 mmol/L (3.5-5.1); SODIUM,NA 134.0 mmol/L (136-145)
[2024-09-29 08:05] LABS: MEAN PLATELET VOLUME 10.9 fL (6.0-10.0); PLATELET COUNT,PLT 179.0 K/uL (150-400); RED BLOOD CELL COUNT 3.97 M/uL (4.50-6.50); RED CELL DISTRIBUTION WIDTH 15.6 % (11.0-16.0); WHITE BLOOD CELL COUNT,WBC 10.0 K/uL (4.0-11.0)
[2024-09-29 08:25] LABS: BLOOD UREA NITROGEN,BUN 24.0 mg/dL (8-26); CARBON DIOXIDE,CO2 25.2 mmol/L (21.0-32.0); CHLORIDE,CL 108.0 mmol/L (98-107); CREATININE 0.72 mg/dL (0.70-1.30); EST CRCL DRUG DOSING (CG) 118.68 mL/min; ESTIMATED GFR 103.0 mL/min (>60); GLUCOSE RANDOM 233.0 mg/dL (74-100); POTASSIUM,K 3.8 mmol/L (3.5-5.1); SODIUM,NA 142.0 mmol/L (136-145)
== END 2024-09-29 13:03 | disposition home or self-care (01) | DRG 642 ==
LOC: LB.ED 04:28 → LB.MS 10:59
PROVIDERS: ADMIT Surgery; ATTEND Surgery
DX: E83.39 Other disorders of phosphorus metabolism (principal); I42.9 Cardiomyopathy, unspecified; N39.0 Urinary tract infection, site not specified; E83.42 Hypomagnesemia; R53.81 Other malaise; M54.9 Dorsalgia, unspecified; G89.29 Other chronic pain; G43.909 Migraine, unspecified, not intractable, without status migrainosus; F43.10 Post-traumatic stress disorder, unspecified; E11.9 Type 2 diabetes mellitus without complications; I10 Essential (primary) hypertension; M13.0 Polyarthritis, unspecified; Z79.899 Other long term (current) drug therapy; Z86.16 Personal history of COVID-19; Z95.810 Presence of automatic (implantable) cardiac defibrillator; Z87.891 Personal history of nicotine dependence; Z79.4 Long term (current) use of insulin
CPT/HCPCS: 36415; 73030-RT; 80048; 80053; 81001; 82550; 82947; 83735; 84100; 85025; 85027; 86140; 87086; 96361; 96365; 96367; 96375; 97161-GP; 99222; 99231; 99238; 99285; 99285-25; A9270-GY; J1171; J1650; J1885; J2270; J2543; J2919; J3360; J3475; J3490; J7030; J7040; J7050

== ENCOUNTER 2024-10-01 10:12 | Emergency (ER) | payer MEDICAID ==
[2024-10-01] MEDS ORDERED: Sodium Chloride 0.9% 10 ML Syringe FLUSH PRN (11:14)
[2024-10-01] MEDS: methylPREDNISolone Sodium Succinate 40 MG/1 ML SDV IVPUSH ONE (11:30)
[2024-10-01] MEDS: Ketorolac 15 MG/ML SDV IVPUSH ONE (11:30)
[2024-10-06 00:18] LABS: DOUBLE-STRANDED DNA IGG ELISA 7 IU (0-24); JO-1 HISTIDYL-TRNA SYNTHET,IGG 1 AU/mL (0-40); SCLERODERMA (SCL-70) AB,IGG 0 AU/mL (0-40); SMITH (ENA) ANTIBODY, IGG 1 AU/mL (0-40); SMITH/RNP (ENA) AB, IGG 3 Units (0-19); SSA-52 (RO52) (ENA) AB, IGG 6 AU/mL (0-40); SSA-60 (RO60) (ENA) AB, IGG 1 AU/mL (0-40); SSB (LA) (ENA) ANTIBODY, IGG 0 AU/mL (0-40)
[2024-10-07 21:08] LABS: RHEUMATOID FACTOR, IGA ELISA 15 Units (<=6); RHEUMATOID FACTOR, IGG ELISA 5 Units (<=6); RHEUMATOID FACTOR, IGM ELISA 7 Units (<=6)
== END 2024-10-01 14:14 | disposition home or self-care (01) ==
LOC: LB.ED 10:12
DX: M35.9 Systemic involvement of connective tissue, unspecified (principal); E11.9 Type 2 diabetes mellitus without complications; Z79.899 Other long term (current) drug therapy; Z79.4 Long term (current) use of insulin
CPT/HCPCS: 36415; 51798; 83516; 86140; 86225; 86235; 96374; 96375; 99284; J1885; J2919; J7512